=== PATIENT | male | born 1965 | race Caucasian/White ===

== ENCOUNTER 2020-07-24 09:52 | Emergency (ER) | payer OTHER ==
[~2020-07-24] VITALS: Ht 180.3 cm; Wt 78.9 kg
[~2020-07-24 09:52] MED LIST: LISI10TA5 PO; METF1000 PO; SIMV10TA2 PO
[2020-07-24 10:03] VITALS: BP_SYST 139
[2020-07-24] MEDS ORDERED: LIDOCAINE 1%, 20 ML MDV 20 ML ONE (10:39)
[2020-07-24 12:25] LABS: SOURCE/TYPE ,BODY FLUID SYNOVIAL
[2020-07-24 12:26] LABS: APPEARANCE,SPUN,BODY FLUID CLEAR (CLEAR); BF APPEARANCE UNSPUN HAZY (CLEAR); BODY FLUID COLOR YELLOW (LT YELLOW); BODY FLUID SOURCE/ TYPE LEFT KNEE; MONOCYTES,BODY FLUID 18 %; NEUTROPHIL, BODY FLUID 82 %; RBC, BODY FLUID 2470 /uL; WBC, BODY FLUID 1843 /uL
[2020-07-24 12:38] LABS: BODY FLUID CRYSTALS NO CRYSTALS SEEN (None Seen)
[2020-07-24 12:43] VITALS: BP_SYST 135
[2020-07-25 15:25] LABS: BODY FLUID GLUCOSE 204 mg/dL
[2020-07-25 15:26] LABS: BODY FLUID TOTAL PROTEIN 3.7 g/dL
== END 2020-07-24 12:43 | disposition home or self-care (01) ==
LOC: SED 09:52
DX: M25.462 Effusion, left knee (principal)
CPT/HCPCS: 20610; 82947; 84157; 87070; 89051 ×2; 89060; 99283; J2001; 99284